=== PATIENT | male | born 1950 | race Caucasian/White ===

== ENCOUNTER 2016-10-05 14:37 | Emergency (ER) | payer MEDICARE, BC | END 2016-10-05 15:55 | disposition left against medical advice (07) | LOC: ER1 14:37 | DX: Z53.21 Procedure and treatment not carried out due to patient leaving prior to being seen by health care provider (principal) | CPT/HCPCS: 81001; J7030 ==

== ENCOUNTER 2016-10-06 09:35 | Emergency (ER) | payer MEDICARE, BC ==
[2016-10-06 10:47] LABS: HEMOGLOBIN 15.5 gm/dl (14.0-17.5); RED BLOOD COUNT 5.42 M/UL (4.20-5.50); WHITE BLOOD COUNT 9.8 K/UL (4.5-11.0)
[2016-10-06 11:10] LABS: BUN/CREATININE RATIO 14 (0-10)
== END 2016-10-06 13:57 | disposition home or self-care (01) ==
LOC: ER1 09:35
PROVIDERS: Emergency Medicine
DX: R10.9 Unspecified abdominal pain (principal); M54.31 Sciatica, right side; E11.9 Type 2 diabetes mellitus without complications; I11.9 Hypertensive heart disease without heart failure; Z79.84 Long term (current) use of oral hypoglycemic drugs; F17.290 Nicotine dependence, other tobacco product, uncomplicated
CPT/HCPCS: 36415; 80053; 81001; 83690; 85025; 96361; 96374; 96375; 99284; J2270; J2405; J7030; J7050; Q9962